=== PATIENT | male | born 1970 | race Caucasian/White ===

== ENCOUNTER 2019-06-15 06:08 | Day surgery (SDC) | payer OTHER ==
[~2019-06-15] VITALS: Ht 195.6 cm; Wt 130.9 kg
[~2019-06-15 06:08] MED LIST: CeFAZolin 2 GM/DEXTROSE 50 ML IV ONE; RINGERS SOLUTION,LACTATED 1,000 ML IV ONE
[2019-06-15] MEDS ORDERED: DEXAMETHASONE SOD PHOS 4 MG/ML VIAL IVP ONE (06:09)
[2019-06-15] MEDS ORDERED: ROCURONIUM BROMIDE 10 MG/ML 5 ML VIAL IVP ONE (06:09)
[2019-06-15] MEDS ORDERED: FentaNYL CITRATE-PF 100 MCG/2 ML VIAL IVP ONE (06:09)
[2019-06-15] MEDS ORDERED: PROPOFOL 1% 20 ML VIAL IVP ONE (06:09)
[2019-06-15] MEDS ORDERED: MIDAZOLAM HCL 2 MG/2 ML VIAL IVP ONE (06:09)
[2019-06-15] MEDS ORDERED: SUCCINYLCHOLINE CHLORIDE 20 MG/ML 10 ML VIAL IVP ONE (06:09)
[2019-06-15] MEDS ORDERED: ONDANSETRON HCL 4 MG/2 ML VIAL IVP ONE (06:09)
[2019-06-15] MEDS ORDERED: KETOROLAC TROMETHAMINE 60 MG/2 ML VIAL IM ONE (06:09)
[2019-06-15] MEDS ORDERED: BUPIVACAINE HCL/PF 0.25% 30 ML VIAL ONE (06:11)
[2019-06-15] MEDS ORDERED: SODIUM CL IRRIG SOLN BAG 6,000 ML IRRIG ONE (06:11)
[2019-06-15] MEDS ORDERED: MUPIROCIN CALCIUM 2% 22 GM OINTMENT ONE (06:11)
[2019-06-15 06:45] LABS: BASOPHILS % (AUTO) 0.9 % (0.0-2.0); EOSINOPHILS % (AUTO) 2.7 % (1.0-6.0); HEMATOCRIT 47.9 % (41-53); HEMOGLOBIN 16.1 g/dL (13.5-17.5); LYMPHOCYTES # (AUTO) 1.9 K/uL (1.0-4.8); LYMPHOCYTES % (AUTO) 16.5 % (22.0-44.0); MEAN CORPUSCULAR HEMOGLOBIN 28.9 pg (26.0-34.0); MEAN CORPUSCULAR HGB CONC 33.6 G/dL (31.0-37.0); MEAN CORPUSCULAR VOLUME 86 fL (80-100); MONOCYTES # (AUTO) 0.6 K/uL (0.1-1.0); MONOCYTES % (AUTO) 4.7 % (2.0-9.0); NEUTROPHILS # (AUTO) 8.8 K/uL (1.8-7.7); NEUTROPHILS % (AUTO) 75.2 % (40.0-70.0); PLATELET COUNT (AUTO) 343 K/uL (150-450); RED BLOOD CELL COUNT(AUTO) 5.58 MIL/uL (4.50-5.90); RED CELL DISTRIBUTION WIDTH 14.8 % (11.5-14.5)
[2019-06-15 06:48] LABS: INR 1.1 (0.9-1.1); PROTHROMBIN TIME 10.7 SEC (9.4-11.6)
[2019-06-15 06:52] LABS: ANION GAP 10 mmol/L (8-16); CALCIUM, TOTAL 8.8 mg/dL (8.8-10.5); CARBON DIOXIDE 26 mmol/L (22-29); CHLORIDE 107 mmol/L (98-107); CREATININE 1.17 mg/dL (0.60-1.30); GLOMERULAR FILTR. RATE CALC > 60 mL/min (>60); GLUCOSE,RANDOM 117 mg/dL (70-110); POTASSIUM 4.1 mmol/L (3.5-5.1); SODIUM SERUM 143 mmol/L (136-145); UREA NITROGEN, BLOOD 16 mg/dL (7-18)
[2019-06-15] MEDS ORDERED: FentaNYL CITRATE-PF 100 MCG/2 ML VIAL IVP PRN (07:00)
[2019-06-15] MEDS ORDERED: HYDROmorphone 2 MG/ML SYRINGE IVP PRN (07:00)
[2019-06-15] MEDS ORDERED: CeFAZolin 2 GM/DEXTROSE 50 ML IV ONE (07:00)
[2019-06-15] MEDS ORDERED: MEPERIDINE-PF 25 MG/ML VIAL IVP PRN (07:00)
[2019-06-15] MEDS ORDERED: LIDOCAINE/PF 1% 5 ML VIAL ID ONE (07:00)
[2019-06-15] MEDS ORDERED: BUPIVACAINE LIPOSOME/PF 1.3%-13.3MG/ML SUSPENSION 20 ML VIAL INJ ONE (07:00)
== END 2019-06-15 09:40 | disposition home or self-care (01) ==
LOC: SURGERY 06:08
PROVIDERS: ATTEND Orthopaedic Surgery
DX: S83.272A Complex tear of lateral meniscus, current injury, left knee, initial encounter (principal); M65.861 Other synovitis and tenosynovitis, right lower leg; M23.41 Loose body in knee, right knee; E66.9 Obesity, unspecified; Z68.34 Body mass index [BMI] 34.0-34.9, adult; Z79.01 Long term (current) use of anticoagulants; X58.XXXA Exposure to other specified factors, initial encounter; Y93.89 Activity, other specified; Y92.89 Other specified places as the place of occurrence of the external cause; Y99.8 Other external cause status
CPT/HCPCS: 29881; 29876; 36415; 80048; 85025; 85610; 85730; C9290; J0330; J0690; J1100; J1885; J2250; J2405; J2704; J3010; J3490 ×2; J7120; 88304